=== PATIENT | female | born 1940 | race Caucasian/White ===

== ENCOUNTER → 2016-12-24 | Outpatient (CLI) | payer MEDICARE, BC ==
--- NOTE | 2016-12-25 16:06 | BD ---
EXAMINATION TYPE: MG DEXA axial skeleton. DATE OF EXAM: 12/24/2016 4:34 PM COMPARISON: NONE CLINICAL HISTORY: M81.0 OSTEOPOROSIS Height: 61 Weight: 120 FRAX RISK QUESTIONS: Alcohol (3 or more units per day): NO Family History (Parent hip fracture): UNSURE Glucocorticoids (More than 3mos): NO (Ex: prednisone, prednisolone, methylprednisolone, dexamethasone, and hydrocortisone). History of Fracture in Adulthood: NO Secondary Osteoporosis: NO 1. Type 1 Diabetes: NO 2. Hyperthyroidism: NO 3. Menopause before 45: NO 4. Malnutrition: NO 5. Chronic liver disease: NO Rheumatoid Arthritis: NO Current Tobacco Use: NO RISK FACTORS HISTORY OF: Spine Fracture: T-SPINE FX When: 50 YRS AGO Family History of Osteoporosis: UNKNOWN Smoke tobacco: NO Drink Alcohol: NO Active: SOMEWHAT Diet low in dairy products/other sources of calcium: NO Postmenopausal woman: 52 YRS Lost more than 2 inches in height since high school: UNSURE Adrenal Insufficiency: NO MEDICATIONS: Additional Medications: BP MEDS, STATINS FOR CHOLESTEROL, CALCIUM AND VIT D3 Additional History: HYPERTENSION, CHOLESTEROL EXAM MEASUREMENTS: Bone mineral densitometry was performed using the First Meta System. Bone mineral density as measured about the Lumbar spine is: ----- L1-L4(G/cm2): 1.025 T Score Values are as follows: ----- L1: -3.1 ----- L2: -2.7 ----- L3: -0.9 ----- L4: 0.9 ----- L1-L4: -1.3 Bone mineral density THIS IS HER FIRST BONE DENSITY AT [facility], [facility] AT [facility]...2006 Bone mineral density about the R hip (g/cm2): 0.849 Bone mineral density about the L hip (g/cm2): 0.786 T Score values are as follows: -----R Neck: -1.6 -----L Neck: -2.4 -----R Intertrochanter: -2.2 -----L Intertrochanter: -2.3 Bone mineral density FIRST BONE DENSITY FOR HER AT [facility], [facility] AT [facility]....2006 FRAX%'S: 17.0% FOR MAJOR OSTEOPOROTIC FX AND 5.8% FOR A HIP FX.....PROBABILITY OF FX IN 10 YRS JADA E IMPRESSION: Osteopenia (T Score between -2.5 and -1 as noted by T score values There is slightly increased risk of fracture and the patient may be considered for treatment. Re-Screen 1-2 years. NOTE: T-SCORE=SD OF THE YOUNG ADULT MEAN.
== END | disposition home or self-care (01) ==
LOC: RADBDWWP 16:09
PROVIDERS: ATTEND Family Medicine
DX: M85.80 Other specified disorders of bone density and structure, unspecified site (principal)
CPT/HCPCS: 77080

== ENCOUNTER 2024-10-11 00:14 | Inpatient (IN) | payer MEDICARE, BC ==
[2024-10-11 00:19] LABS: Glucose,Whole Blood 100 mg/dL (70-110)
--- NOTE | 2024-10-11 00:23 | ED ---
Fall HPI - General Chief Complaint: Fall Stated Complaint: Fall Time Seen by Provider: 10/11/24 00:16 Source: EMS, RN notes reviewed, old records reviewed Mode of arrival: EMS Limitations: no limitations - History of Present Illness Initial Comments: This is an 84-year-old female to the ER for evaluation today. Patient presents today for evaluation regards to altered mental status. This patient is unable to provide history. Patient was sent in for being found down and there was concern for fall MD Complaint: fall, other (Found down) -: unknown Fall From: standing When Fall Occurred: unsure Fall Witnessed: no Place Fall Occurred: home Loss of Consciousness: none Prolonged Down Time?: no Symptoms Prior to Fall: none Context: tripped/slipped Associated Symptoms: denies - Related Data Home Medications Medication Instructions Recorded Confirmed Brimonidine Tartrate/Timolol 1 drop BOTH EYES BID 10/11/24 10/11/24 [Brimonidine-Timolol 0.2%-0.5%] Latanoprost [Latanoprost 0.005%] 1 drop BOTH EYES HS 10/11/24 10/11/24 traMADol HCl [Ultram] 50 mg PO Q6H PRN 10/11/24 10/11/24 Previous Rx's Medication Instructions Recorded MORPHINE ORAL GABBI CONC 20mg/mL 10 mg PO Q4H PRN 3 Days #9 ml 10/14/24 [Roxanol Oral Soln Conc 20MG/ML] Allergies Allergy/AdvReac Type Severity Reaction Status Date / Time No Known Allergies Allergy Verified 10/11/24 07:41 Review of Systems ROS Statement: Those systems with pertinent positive or pertinent negative responses have been documented in the HPI. ROS Other: All systems not noted in ROS Statement are negative. Past Medical History Past Psychological History: Unable to Obtain Smoking Status: Unknown if ever smoked Past Alcohol Use History: None Reported Past Drug Use History: None Reported General Exam Limitations: no limitations General appearance: alert, in no apparent distress Head exam: Present: atraumatic, normocephalic, normal inspection Eye exam: Present: normal appearance, PERRL, EOMI. Absent: scleral icterus, conjunctival injection, periorbital swelling ENT exam: Present: normal exam, mucous membranes moist Neck exam: Present: normal inspection. Absent: tenderness, meningismus, lymphadenopathy Respiratory exam: Present: normal lung sounds bilaterally. Absent: respiratory distress, wheezes, rales, rhonchi, stridor Cardiovascular Exam: Present: regular rate, normal rhythm, normal heart sounds. Absent: systolic murmur, diastolic murmur, rubs, gallop, clicks GI/Abdominal exam: Present: soft, normal bowel sounds. Absent: distended, tenderness, guarding, rebound, rigid Extremities exam: Present: normal inspection, full ROM, normal capillary refill. Absent: tenderness, pedal edema, joint swelling, calf tenderness Back exam: Present: normal inspection Neurological exam: Present: alert, oriented X3, CN II-XII intact Psychiatric exam: Present: normal affect, normal mood Skin exam: Present: warm, dry, intact, normal color. Absent: rash Course Vital Signs 10/11/24 10/11/24 10/11/24 00:15 04:01 05:09 Temperature 97.7 F Pulse Rate 86 86 88 Respiratory 18 18 20 Rate Blood Pressure 106/86 92/60 111/79 O2 Sat by Pulse 95 96 96 Oximetry - Reevaluation(s) Reevaluation #1: 10/11/24 03:42 Medical records reviewed Reevaluation #2: 10/11/24 03:42 No change in symptoms here in the ER Reevaluation #3: 10/11/24 03:42 Patient informed of results questions answered Reevaluation #4: Was pt. sent in by a medical professional or institution ([facility], [facility], urgent care, hospital, or fci...) When possible be specific @ -no Did you speak to anyone other than the patient for history (EMS, parent, family, police, friend...)? What history was obtained from this source @ -no Did you review nursing and triage notes (agree or disagree)? Why? @ -agree Are old charts reviewed (outside hosp., previous admission, EMS record, old EKG, old radiological studies, urgent care reports/EKG's, fci records)? Report findings @ -yes Differential Diagnosis (chest pain, altered mental status, abdominal pain women, abdominal pain men, vaginal bleeding, weakness, fever, dyspnea, syncope, headache, dizziness, GI bleed, back pain, seizure, CVA, palpatations, mental health, musculoskeletal)? @ -prior EKG interpreted by me (3pts min.). @ -yes X-rays interpreted by me (1pt min.). @ -yes negative for acute disease CT interpreted by me (1pt min.). @ -Yes negative for acute disease U/S interpreted by me (1pt. min.). @ -no What testing was considered but not performed or refused? (CT, X-rays, U/S, labs)? Why? @ -none What meds were considered but not given or refused? Why? @ -none Did you discuss the management of the patient with other professionals (professionals i.e. , PA, UNDERWATER TR[employer], lab, RT, psych nurse, group social worker, hospital medicine director, teacher, radio division officer, case finishing machine adjuster)? Give summary @ -no Was smoking cessation discussed for >3mins.? @ -no Was critical care preformed (if so, how long)? @ -no Were there social determinants of health that impacted care today? How? (Homelessness, low income, unemployed, alcoholism, drug addiction, tr ansportation, low edu. Level, literacy, decrease access to med. care, assisted, rehab)? @ -none Was there de-escalation of care discussed even if they declined (Discuss DNR or withdrawal of care, Hospice)? DNR status @ -no What co-morbidities impacted this encounter? (DM, HTN, Smoking, COPD, CAD, Canc er, CVA, ARF, Chemo, Hep., AIDS, mental health diagnosis, sleep apnea, morbid obesity)? @ -none Was patient admitted / discharged? Hospital course, mention meds given and route, prescriptions, significant lab abnormalities, going to OR and other pertinent info. @ - 84 female will be admitted for low potassium levels, suspect UTI, patient with persistent weakness and falls, debility, will admit for likely placement malnutrition low potassium Admitted Undiagnosed new problem with uncertain prognosis? @ -no Drug Therapy requiring intensive monitoring for toxicity (Heparin, Nitro, Insulin, Cardizem)? @ -no Were any procedures done? @ -no Diagnosis/symptom? @ -Low potassium and falls Acute, or Chronic, or Acute on Chronic? @ -Acute Uncomplicated (without systemic symptoms) or Complicated (systemic symptoms)? @ -Complicated Side effects of treatment? @ -no Exacerbation, Progression, or Severe Exacerbation? @ -exacerbation Poses a threat to life or bodily function? How? (Chest pain, USA, ME, pneumonia, PE, COPD, DKA, ARF, appy, cholecystitis, CVA, Diverticulitis, Homicidal, Suicid al, threat to staff... and all critical care pts) @ -yes severely low potassium Reevaluation #5: Differential Altered Mental Status: Hypoglycemia, DKA, hypercapnia, ETOH, overdose, CO poisoning, trauma, myxedema coma, HTN encephalopathy, infection, encephalitis, psychosis, intercranial hemorrhage, hepatic encephalopathy, meningitis, CVA, this is not meant to be an all-inclusive list - Consultations Consultation #1: With [facility] who agrees to admit this patient Medical Decision Making - Medical Decision Making 84 female will be admitted for low potassium levels, suspect UTI, patient with persistent weakness and falls, debility, will admit for likely placement malnutrition low potassium - Lab Data Result diagrams: 10/12/24 05:54 10/12/24 05:54 Lab Results 10/11/24 10/11/24 10/11/24 Range/Units 00:17 00:22 00:22 WBC 11.7 H (3.8-10.6) k/uL RBC 4.48 (3.80-5.40) m/uL Hgb 13.7 (11.4-16.0) gm/dL Hct 42.5 (34.0-46.0) % MCV 94.9 (80.0-100.0) fL MCH 30.5 (25.0-35.0) pg MCHC 32.1 (31.0-37.0) g/dL RDW 13.6 (11.5-15.5) % Plt Count 268 (150-450) k/uL MPV 8.4 Neutrophils % 85 % Lymphocytes % 6 % Monocytes % 5 % Eosinophils % 1 % Basophils % 0 % Neutrophils # 10.0 H (1.3-7.7) k/uL Lymphocytes # 0.7 L (1.0-4.8) k/uL Monocytes # 0.6 (0-1.0) k/uL Eosinophils # 0.1 (0-0.7) k/uL Basophils # 0.0 (0-0.2) k/uL PT 11.1 (10.0-12.5) sec INR 1.0 (<1.2) APTT 22.8 (22.0-30.0) sec Sodium (137-145) mmol/L Potassium (3.5-5.1) mmol/L Chloride (98-107) mmol/L Carbon Dioxide (22-30) mmol/L Anion Gap mmol/L BUN (7-17) mg/dL Creatinine (0.52-1.04) mg/dL Est GFR (CKD-EPI)AfAm (>60 ml/min/1.73 sqM) Est GFR (CKD-EPI)NonAf (>60 ml/min/1.73 sqM) Glucose (74-99) mg/dL POC Glucose (mg/dL) 100 (70-110) mg/dL POC Glu Cigarette Machines Mechanic ID Karlo Rajputsten Calcium (8.4-10.2) mg/dL Phosphorus (2.5-4.5) mg/dL Magnesium (1.6-2.3) mg/dL Total Bilirubin (0.2-1.3) mg/dL AST (14-36) U/L ALT (4-34) U/L Alkaline Phosphatase (38-126) U/L Creatine Kinase (30-135) U/L Troponin I (0.000-0.034) ng/mL NT-Pro-B Natriuret Pep pg/mL Total Protein (6.3-8.2) g/dL Albumin (3.5-5.0) g/dL 10/11/24 10/11/24 Range/Units 00:22 00:22 WBC (3.8-10.6) k/uL RBC (3.80-5.40) m/uL Hgb (11.4-16.0) gm/dL Hct (34.0-46.0) % MCV (80.0-100.0) fL MCH (25.0-35.0) pg MCHC (31.0-37.0) g/dL RDW (11.5-15.5) % Plt Count (150-450) k/uL MPV Neutrophils % % Lymphocytes % % Monocytes % % Eosinophils % % Basophils % % Neutrophils # (1.3-7.7) k/uL Lymphocytes # (1.0-4.8) k/uL Monocytes # (0-1.0) k/uL Eosinophils # (0-0.7) k/uL Basophils # (0-0.2) k/uL PT (10.0-12.5) sec INR (<1.2) APTT (22.0-30.0) sec Sodium 134 L (137-145) mmol/L Potassium 2.6 L* (3.5-5.1) mmol/L Chloride 105 (98-107) mmol/L Carbon Dioxide 26 (22-30) mmol/L Anion Gap 3 mmol/L BUN 17 (7-17) mg/dL Creatinine 0.81 (0.52-1.04) mg/dL Est GFR (CKD-EPI)AfAm 77 (>60 ml/min/1.73 sqM) Est GFR (CKD-EPI)NonAf 67 (>60 ml/min/1.73 sqM) Glucose 97 (74-99) mg/dL POC Glucose (mg/dL) (70-110) mg/dL POC Glu Cigarette Machines Mechanic ID Calcium 8.8 (8.4-10.2) mg/dL Phosphorus 4.1 (2.5-4.5) mg/dL Magnesium 2.1 (1.6-2.3) mg/dL Total Bilirubin 0.5 (0.2-1.3) mg/dL AST 29 (14-36) U/L ALT 21 (4-34) U/L Alkaline Phosphatase 97 (38-126) U/L Creatine Kinase 69 (30-135) U/L Troponin I 0.060 H* (0.000-0.034) ng/mL NT-Pro-B Natriuret Pep 1020 pg/mL Total Protein 5.3 L (6.3-8.2) g/dL Albumin 2.8 L (3.5-5.0) g/dL - EKG Data -: EKG Interpreted by Me (EKG is sinus 87 AL 152 QRS 130 QTc 432) - Radiology Data Radiology results: report reviewed (CT brain C-spine chest and pelvis x-ray negative for acute disease), image reviewed Disposition Clinical Impression: Hypokalemia, Fall, Weakness Disposition: ADMITTED IP TO THIS HOSP Condition: Poor Is patient prescribed a controlled substance at d/c from ED?: No Time of Disposition: 02:00
[2024-10-11 00:54] LABS: Basophils % (A) 0 %; Eosinophils # (A) 0.1 k/uL (0-0.7); Eosinophils % (A) 1 %; HCT 42.5 % (34.0-46.0); HGB 13.7 gm/dL (11.4-16.0); Lymphocytes # (A) 0.7 k/uL (1.0-4.8); Lymphocytes % (A) 6 %; MCH 30.5 pg (25.0-35.0); MCHC 32.1 g/dL (31.0-37.0); MCV 94.9 fL (80.0-100.0); Mean Platelet Volume 8.4; Monocytes # (A) 0.6 k/uL (0-1.0); Monocytes % (A) 5 %; Neutrophils % (A) 85 %; Platelet Count 268 k/uL (150-450); RBC 4.48 m/uL (3.80-5.40); RDW 13.6 % (11.5-15.5); WBC 11.7 k/uL (3.8-10.6)
[2024-10-11 01:02] LABS: Partial Thromboplastin Time 22.8 sec (22.0-30.0); Prothrombin Time 11.1 sec (10.0-12.5)
[2024-10-11 01:03] LABS: ALT 21 U/L (4-34); AST 29 U/L (14-36); African American GFR (CKD) 77 (>60 ml/min/1.73 sqM); Albumin 2.8 g/dL (3.5-5.0); Alkaline Phosphatase 97 U/L (38-126); Anion Gap 3 mmol/L; Blood Urea Nitrogen 17 mg/dL (7-17); Calcium 8.8 mg/dL (8.4-10.2); Carbon Dioxide 26 mmol/L (22-30); Chloride 105 mmol/L (98-107); Creatine Kinase 69 U/L (30-135); Glucose 97 mg/dL (74-99); Magnesium 2.1 mg/dL (1.6-2.3); Non-African American GFR(CKD) 67 (>60 ml/min/1.73 sqM); Phosphorus 4.1 mg/dL (2.5-4.5); Sodium 134 mmol/L (137-145); Total Bilirubin 0.5 mg/dL (0.2-1.3); Total Protein 5.3 g/dL (6.3-8.2)
[2024-10-11 01:11] LABS: NT-Pro-B-Type Natriuretic Pept 1020 pg/mL
[2024-10-11 01:18] LABS: Potassium 2.6 mmol/L (3.5-5.1)
[2024-10-11] MEDS: SODIUM CHLORIDE 0.9% 1,000 ML IV STA ×2 (01:20→08:19)
--- NOTE | 2024-10-11 01:34 | CT ---
EXAM: CT Head Without Intravenous Contrast CLINICAL HISTORY: ITS.REASON CT Reason: fall TECHNIQUE: Axial computed tomography images of the head/brain without intravenous contrast. CTDI is 90.5 mGy and DLP is 2956 mGy-cm. This CT exam was performed using one or more of the following dose reduction techniques: automated exposure control, adjustment of the mA and/or kV according to patient size, and/or use of iterative reconstruction technique. COMPARISON: No relevant prior studies available. FINDINGS: Brain: No hemorrhage or mass effect. Senescent changes. Ventricles: No hydrocephalus. Bones/joints: Unremarkable. Soft tissues: Unremarkable. Sinuses: No air fluid level. Mastoid air cells: Clear. IMPRESSION: No acute hemorrhage, hydrocephalus, or mass effect. EXAM: CT Cervical Spine Without Intravenous Contrast CLINICAL HISTORY: ITS.REASON CT Reason: fall TECHNIQUE: Axial computed tomography images of the cervical spine without intravenous contrast. CTDI is 10.3 mGy and DLP is 285.6 mGy-cm. This CT exam was performed using one or more of the following dose reduction techniques: automated exposure control, adjustment of the mA and/or kV according to patient size, and/or use of iterative reconstruction technique. COMPARISON: No relevant prior studies available. FINDINGS: Vertebrae: No acute fracture. Discs/spinal canal/neural foramina: degenerative changes. Soft tissues: No prevertebral swelling. Mild left pleural effusion. IMPRESSION: No acute fracture or subluxation. Mild left pleural effusion.
[2024-10-11] MEDS: POTASSIUM CHLORIDE 20 MEQ in WATER FOR INJECTION 1 100ML.BAG IVPB STA (02:36)
[2024-10-11] MEDS: POTASSIUM BICARBONATE/CIT AC 20 MEQ TABLET.EFF PO ONE ×2 (02:36→02:38)
--- NOTE | 2024-10-11 02:51 | XR ---
EXAM: XR Chest, 1 View CLINICAL HISTORY: ITS.REASON XR Reason: fall TECHNIQUE: Frontal view of the chest. COMPARISON: No relevant prior studies available. FINDINGS: Lungs: No consolidation or mass. Pleural space: No acute findings. Heart: Mild cardiomegaly. Bones/joints: No acute findings. IMPRESSION: No acute cardiopulmonary process.
--- NOTE | 2024-10-11 02:53 | XR ---
EXAM: XR Pelvis, 1 or 2 Views CLINICAL HISTORY: ITS.REASON XR Reason: fall TECHNIQUE: Frontal view of the pelvis. COMPARISON: No relevant prior studies available. FINDINGS: Bones/joints: No acute fracture. No dislocation. Soft tissues: Unremarkable. IMPRESSION: No acute findings.
[2024-10-11] MEDS ORDERED: Potassium Replacement Protocol 1 EACH MISC MISCELLANE PRN (03:03)
[2024-10-11] MEDS ORDERED: LORazepam 2 MG/ML INJ IV PRN (03:03)
[2024-10-11] MEDS: SODIUM CHLORIDE 0.9% 500 ML 500 ML IV STA (03:21)
[2024-10-11] MEDS: LORazepam 2 MG/ML INJ IV STA (03:32)
[2024-10-11] MEDS ORDERED: ONDANSETRON 4 MG/2 ML VIAL IVP PRN (04:24)
[2024-10-11] MEDS ORDERED: NALOXONE 0.4 MG/ML 1 ML VIAL IV PRN (04:24)
[2024-10-11] MEDS: POTASSIUM CHLORIDE 20 MEQ in WATER FOR INJECTION 1 100ML.BAG IVPB SCH (04:53)
[2024-10-11] MEDS: SODIUM CHLORIDE 0.9% 1,000 ML IV SCH (07:30)
[2024-10-11] MEDS: SENNOSIDES 8.6 MG TAB PO SCH (10:17)
[2024-10-11] MEDS: THIAMINE 100 MG TAB PO SCH (10:17)
[2024-10-11] MEDS: ASPIRIN 81 MG PO SCH (10:17)
[2024-10-11 11:22] LABS: Appearance,Urine Clear (Clear); Bilirubin,Urine Negative (Negative); Blood,Urine Negative (Negative); Color,Urine Light Yellow; Glucose,Urine (UA) Negative (Negative); Ketones,Urine 1+ (Negative); Leukocyte Esterase,Urine Negative (Negative); Nitrite,Urine Negative (Negative); Protein,Urine Negative (Negative); Specific Gravity,Urine 1.012 (1.001-1.035); Urobilinogen,Urine <2.0 mg/dL (<2.0)
[2024-10-11] MEDS ORDERED: OLANZapine 10 MG VIAL IM PRN (16:58)
--- NOTE | 2024-10-11 17:22 | P.HPIM ---
History of Present Illness H&P Date: 10/11/24 History of present illness; Patient is an 84-year-old female with dementia, hypertension who presents after fall. Patient is somnolent and not able to provide history. It is reported that she had unseen fall unknown LOC and unknown downtime. She is coming from [facility]. She was noted to have laceration on back right side head. In ER she received single dose of Ativan. Labs done in the ER significant for WBC 11.7, sodium 134, potassium 2.6, glucose 97, troponin 0.060, proBNP 1020, UA positive for ketones otherwise negative EKG done in the ER independently interpreted showed heart rate of 87, no ST segment elevation or depression seen, no T-wave inversions seen. Chest x-ray done independently interpreted in the ER showed no acute process CT head/neck done independently interpreted showed no acute intracranial process. Pelvic x-ray done independently interpreted showed no fracture or dislocation Spoke with the ER physician, patient admission was accepted by internal medicine service for treatment. REVIEW OF SYSTEMS: Unable to review due to lethargy PHYSICAL EXAMINATION: Vitals reviewed GENERAL: Somnolent, thin appearing HEENT: Cannot fully assess. ~2 cm laceration on back right head, closed. CARDIOVASCULAR: S1 and S2 present. No murmurs, rubs, or gallops. PULMONARY: Chest is clear to auscultation, no wheezing, rhonchi, or crackles. ABDOMEN: Generalized tenderness and guarding MUSCULOSKELETAL: Osteoarthritic joints. EXTREMITIES: No apparent cyanosis, clubbing, or pedal edema. NEUROLOGICAL: Seems to move upper and lower extremities. SKIN: No apparent rashes. Assessment and plan Patient is an 84-year-old female with dementia, hypertension who presents after fall. #Mildly elevated troponin #Elevated D-dimer, rule out PE #Fall No ST depression or elevation noted Continuous cardiac monitoring CT angiogram pending Echocardiogram pending Will begin heparin drip if CT angiogram confirms PE Cardiology consulted # Hypokalemia Initially given 120 mEq potassium chloride Potassium replacement protocol Will monitor CMP #Leukocytosis #Generalized abdominal pain #Urinary retention UA positive for ketones Given ceftriaxone 2 g Merlos catheter inserted #Failure to thrive, BMI 14.3 #Starvation ketosis UA positive for ketones Resume home medications F: IV Normal saline 75 mL/h E: Replete potassium N: Soft diet DVT ppx: Subq Lovenox 40 meq daily Code status: Full code [facility]ticipated discharge time: Pending clinical course Dictation was produced using [employer] dictation software. Please excuse any grammatical, word or spelling errors. Attestation I have seen and examined this patient with my resident , discussed the same with the resident/ELIZABETH, and agree with the dictator's assessment and plan as written Dr. Mulugeta bernal Past Medical History Past Medical History: Dementia, Hyperlipidemia, Hypertension History of Any Multi-Drug Resistant Organisms: None Reported Past Surgical History: Appendectomy, Cholecystectomy Additional Past Surgical History / Comment(s): Fractured pelvis from prior fall years ago Past Anesthesia/Blood Transfusion Reactions: No Reported Reaction Past Psychological History: Unable to Obtain Smoking Status: Never smoker Past Alcohol Use History: None Reported Past Drug Use History: None Reported Medications and Allergies Home Medications Medication Instructions Recorded Confirmed Type Acetaminophen Tab [Tylenol] 650 mg PO Q4H PRN 10/11/24 10/11/24 History Aspirin 81 mg PO DAILY 10/11/24 10/11/24 History Brimonidine Tartrate/Timolol 1 drop BOTH EYES BID 10/11/24 10/11/24 History [Brimonidine-Timolol 0.2%-0.5%] Eye-Vites 1 tab PO DAILY 10/11/24 10/11/24 History Folic Acid 0.8 mg PO DAILY 10/11/24 10/11/24 History Healthshake 1 can PO TID-W/MEALS 10/11/24 10/11/24 History Lactulose Encephalopathy Soln 20 gm PO Q12H PRN 10/11/24 10/11/24 History Latanoprost [Latanoprost 0.005%] 1 drop BOTH EYES HS 10/11/24 10/11/24 History Naloxone HCl [Narcan] 4 mg NASAL DIRECTED PRN 10/11/24 10/11/24 History Narcan 0.4mg/Ml 0.4 mg IM DIRECTED PRN 10/11/24 10/11/24 History Poviidone-Iodine Ophth 1 drop BOTH EYES Q8H PRN 10/11/24 10/11/24 History Psyllium Husk (with Sugar) 1 tbsp PO TID-W/MEALS 10/11/24 10/11/24 History [Metamucil Powder] Sennosides [Senokot] 8.6 mg PO BID 10/11/24 10/11/24 History Simvastatin [Zocor] 20 mg PO HS 10/11/24 10/11/24 History Thiamine [Vitamin B-1] 100 mg PO DAILY 10/11/24 10/11/24 History acetaZOLAMIDE [Diamox Sequels] 500 mg PO BID@0700,1900 10/11/24 10/11/24 History amLODIPine [Norvasc] 2.5 mg PO DAILY 10/11/24 10/11/24 History bisacodyL 10 mg RECTAL DAILY PRN 10/11/24 10/11/24 History traMADol HCl [Ultram] 50 mg PO Q6H PRN 10/11/24 10/11/24 History Allergies Allergy/AdvReac Type Severity Reaction Status Date / Time No Known Allergies Allergy Verified 10/11/24 07:41 Physical Exam Vitals: Vital Signs Temp Pulse Pulse Resp BP BP Pulse Ox 10/11/24 07:02 97.3 F L 94 18 101/49 98 10/11/24 06:24 97.3 F L 94 18 101/49 98 10/11/24 05:09 88 20 111/79 96 10/11/24 04:01 86 18 92/60 96 10/11/24 00:15 97.7 F 86 18 106/86 95 Intake and Output 10/10/24 10/11/24 10/11/24 22:59 06:59 14:59 Intake Total 100 Balance 100 Intake: Intake, IV Titration 100 Amount Potassium Chloride 20 meq 100 In Water For Injection 1 100ml.bag @ 50 mls/hr IVPB Q2H [facility] Rx#: [id number] Other: # Bowel Movements 1 Weight 41.5 kg 41.5 kg Results CBC & Chem 7: 10/12/24 05:54 10/12/24 05:54 Labs: Abnormal Lab Results - Last 24 Hours (Table) 10/11/24 10/11/24 10/11/24 Range/Units 00:22 00:22 00:22 WBC 11.7 H (3.8-10.6) k/uL Neutrophils # 10.0 H (1.3-7.7) k/uL Lymphocytes # 0.7 L (1.0-4.8) k/uL Sodium 134 L (137-145) mmol/L Potassium 2.6 L* (3.5-5.1) mmol/L Troponin I 0.060 H* (0.000-0.034) ng/mL Total Protein 5.3 L (6.3-8.2) g/dL Albumin 2.8 L (3.5-5.0) g/dL Thrombosis Risk Factor Assmnt - Choose All That Apply Any of the Below Risk Factors Present?: Yes Each Factor Represents 1 point: Swollen legs (current) Other Risk Factors: Yes Each Risk Factor Represents 3 Points: Age 75 years or older Other congenital or acquired thrombophilia - If yes, enter type in comment: No Thrombosis Risk Factor Assessment Total Risk Factor Score: 4 Thrombosis Risk Factor Assessment Level: Moderate Risk
--- NOTE | 2024-10-11 18:28 | CT ---
EXAMINATION TYPE: CT chest angio for PE CT DLP: 222.1 mGycm, Automated exposure control for dose reduction was used. DATE OF EXAM: 10/11/2024 6:07 PM COMPARISON: Chest radiograph from same day. CT C-spine from the same day.. CLINICAL INDICATION:Female, 84 years old with history of Dyspnea; Dyspnea. TECHNIQUE/CONTRAST: CTA scan of the thorax is performed with IV Contrast, patient injected with 100 ml mL of Isovue 370, MIP images are created and reviewed these are created on a separate workstation.. FINDINGS: Motion artifact degrades images limiting evaluation. Exam is also limited by patient upper extremitie s overlying the lower thorax and upper abdomen resulting in beam artifact degrading quality of images . Pulmonary Artery: There is no evidence for a filling defect within the pulmonary vasculature to sugge st acute pulmonary embolism. The pulmonary artery is of normal size. Lungs/Pleura: Bibasilar atelectasis/scarring. There is a small left pleural effusion Airway: Large airways are patent. Bilateral bronchiectasis most pronounced in the lower lobes. Heart/pericardium: Heart is within normal limits for size. Left ventricular hypertrophy is present. T race pericardial fluid is present. Vasculature: There is hazy curvilinear hypoattenuation noted within the distal descending thoracic ao rta and for a short segment of the proximal abdominal aorta. There are no aneurysmal changes. Mediastinum: No gross evidence of adenopathy. Musculoskeletal: Partially visualized superior endplate compression deformity of L4 vertebral body al so may represent a small node. Degenerative changes visualized spine. Motion artifacts limit the eval uation of rib fractures. Diffuse osteopenia. Soft Tissues/lymph nodes: Unremarkable. Lower neck: No significant findings. Upper Abdomen: Cystic changes of the right kidney suggested. Moderate-sized hiatal hernia with partia l intrathoracic stomach present. IMPRESSION: 1. No evidence of pulmonary embolism. 2. Hazy curvilinear hypoattenuation within the descending thoracic distal aorta and proximal abdomina l aorta which may represent a dissection flap however exam is significantly limited secondary to noman on artifact. Findings might be artifactual. Correlate with any known history and clinical evaluation. If clinical concern for dissection is present repeat short-term follow-up as needed. 3. Small left pleural effusion. 4. Left ventricular hypertrophy is suggested. Correlate with echocardiography. 5. Partially visualized endplate compression deformity of L4 vertebral body. This may represent a Eileen morl node formation versus a compression fracture. Correlate with any point tenderness and history of trauma. [facility], , 10/11/2024 6:26 PM
[2024-10-11] MEDS: LATANOPROST 0.005% OPHTH DROPS 2.5 ML BTL BOTH EYES SCH (20:16)
[2024-10-12 06:52] LABS: Basophils # (A) 0.1 k/uL (0-0.2); Basophils % (A) 1 %; Eosinophils # (A) 0.1 k/uL (0-0.7); Eosinophils % (A) 1 %; HCT 40.2 % (34.0-46.0); HGB 12.6 gm/dL (11.4-16.0); Hypochromasia Moderate; Lymphocytes # (A) 0.9 k/uL (1.0-4.8); Lymphocytes % (A) 8 %; MCH 31.1 pg (25.0-35.0); MCHC 31.3 g/dL (31.0-37.0); MCV 99.5 fL (80.0-100.0); Mean Platelet Volume 8.6; Monocytes # (A) 0.6 k/uL (0-1.0); Monocytes % (A) 6 %; Neutrophils % (A) 83 %; Platelet Count 259 k/uL (150-450); RBC 4.04 m/uL (3.80-5.40); RDW 13.7 % (11.5-15.5); WBC 10.9 k/uL (3.8-10.6)
[2024-10-12 07:12] LABS: ALT 16 U/L (4-34); AST 26 U/L (14-36); African American GFR (CKD) >90 (>60 ml/min/1.73 sqM); Albumin 2.3 g/dL (3.5-5.0); Alkaline Phosphatase 76 U/L (38-126); Anion Gap 9 mmol/L; Blood Urea Nitrogen 15 mg/dL (7-17); Calcium 8.3 mg/dL (8.4-10.2); Carbon Dioxide 14 mmol/L (22-30); Chloride 117 mmol/L (98-107); Glucose 55 mg/dL (74-99); Magnesium 2.2 mg/dL (1.6-2.3); Non-African American GFR(CKD) 79 (>60 ml/min/1.73 sqM); Phosphorus 3.7 mg/dL (2.5-4.5); Potassium 3.9 mmol/L (3.5-5.1); Sodium 140 mmol/L (137-145); Total Bilirubin 0.1 mg/dL (0.2-1.3); Total Protein 4.5 g/dL (6.3-8.2)
[2024-10-12] MEDS ORDERED: DEXTROSE 50% SYRINGE 50 ML IVP PRN (08:50)
[2024-10-12] MEDS: ENOXAPARIN 40 MG/0.4 ML SYRINGE SQ SCH (09:22)
[2024-10-12 09:25] LABS: Glucose,Whole Blood 74 mg/dL (70-110)
[2024-10-12 11:19] LABS: Glucose,Whole Blood 51 mg/dL (70-110)
[2024-10-12] MEDS: DEXTROSE 50% SYRINGE 50 ML IVP PRN (11:19)
[2024-10-12] MEDS: DEXTROSE 5% IN WATER 1,000 ML IV SCH (11:34)
--- NOTE | 2024-10-12 11:42 | P.PN ---
Subjective Progress Note Date: 10/12/24 History of present illness; Patient is an 84-year-old female with dementia, hypertension who presents after fall. Patient is somnolent and not able to provide history. It is reported that she had unseen fall unknown LOC and unknown downtime. She is coming from [facility]. She was noted to have laceration on back right side head. In ER she received single dose of Ativan. Labs done in the ER significant for WBC 11.7, sodium 134, potassium 2.6, glucose 97, troponin 0.060, proBNP 1020, UA positive for ketones otherwise negative EKG done in the ER independently interpreted showed heart rate of 87, no ST segment elevation or depression seen, no T-wave inversions seen. Chest x-ray done independently interpreted in the ER showed no acute process CT head/neck done independently interpreted showed no acute intracranial process. Pelvic x-ray done independently interpreted showed no fracture or dislocation 10/12/2024 Patient seen and examined at bedside. Spoke to at bedside and goals of care discussion. After discussion decision was made by to patient" and consult hospice. He stated she has had multiple incidences of fall, when she was able to ambulate with wheelchair. Since then he was moved to nursing facility several weeks ago, where she uses wheelchair. She remains lethargic, unable to respond appropriately to questions thus far. Begin D5W at 74. Significant labs WBC 10.9, sodium 140, potassium 3.9, bicarb 14, glucose 55. CTA of chest interpreted as no pulmonary embolism, significant artifact due to motion. REVIEW OF SYSTEMS: Unable to review due to lethargy PHYSICAL EXAMINATION: Vitals reviewed GENERAL: Somnolent, thin appearing HEENT: Cannot fully assess. ~2 cm laceration on back right head, closed. CARDIOVASCULAR: S1 and S2 present. No murmurs, rubs, or gallops. PULMONARY: Chest is clear to auscultation, no wheezing, rhonchi, or crackles. ABDOMEN: Soft, no noted tenderness or distension MUSCULOSKELETAL: Osteoarthritic joints. EXTREMITIES: No apparent cyanosis, clubbing, or pedal edema. NEUROLOGICAL: Seems to move upper and lower extremities. SKIN: No apparent rashes. Assessment and plan Patient is an 84-year-old female with dementia, hypertension who presents after fall. #Mildly elevated troponin #Elevated D-dimer, rule out PE #Fall No ST depression or elevation noted Continuous cardiac monitoring CT angiogram no pulmonary embolism Echocardiogram pending - PT/OT Cardiology consulted #Leukocytosis #Generalized abdominal pain #Urinary retention UA positive for ketones Given ceftriaxone 2 g Merlos catheter inserted #Failure to thrive, BMI 14.3 #Starvation ketosis UA positive for ketones # Hypokalemia, resolved Initially given 120 mEq potassium chloride Potassium replacement protocol Will monitor CMP Resume home medications F: IV Normal saline 75 mL/h E: Replete potassium N: Soft diet DVT ppx: Subq Lovenox 40 meq daily Code status: Full code Anticipated discharge place: [facility] Anticipated discharge time: Pending clinical course Dictation was produced using [employer] dictation software. Please excuse any grammatical, word or spelling errors. Attestation I have seen and examined this patient with my resident , discussed the same with the resident/ELIZABETH, and agree with the dictator's assessment and plan as written Dr. Mulugeta bernal Objective - Vital Signs Vital signs: Vital Signs Temp 99.6 F 10/12/24 04:00 Pulse 98 10/12/24 04:00 Resp 20 10/12/24 04:00 BP 107/55 10/12/24 04:00 Pulse Ox 92 L 10/12/24 04:00 FiO2 Intake & Output 10/11/24 10/12/24 10/12/24 18:59 06:59 18:59 Output Total 950 650 Balance -950 -650 Weight 41.5 kg Output: Urine 950 650 Other: Voiding Method Indwelling Catheter Indwelling Catheter # Bowel Movements 2 1 - Labs CBC & Chem 7: 10/12/24 05:54 10/12/24 05:54 Labs: Abnormal Lab Results - Last 24 Hours (Table) 10/11/24 10/11/24 10/11/24 Range/Units 08:21 08:21 11:01 WBC (3.8-10.6) k/uL Neutrophils # (1.3-7.7) k/uL Lymphocytes # (1.0-4.8) k/uL D-Dimer 4.26 H (<0.60) mg/L FEU Chloride (98-107) mmol/L Carbon Dioxide (22-30) mmol/L Glucose (74-99) mg/dL Calcium (8.4-10.2) mg/dL Total Bilirubin (0.2-1.3) mg/dL Troponin I 0.053 H* (0.000-0.034) ng/mL Total Protein (6.3-8.2) g/dL Albumin (3.5-5.0) g/dL Urine Ketones 1+ H (Negative) 10/11/24 10/12/24 10/12/24 Range/Units 12:36 05:54 05:54 WBC 10.9 H (3.8-10.6) k/uL Neutrophils # 9.0 H (1.3-7.7) k/uL Lymphocytes # 0.9 L (1.0-4.8) k/uL D-Dimer (<0.60) mg/L FEU Chloride 117 H (98-107) mmol/L Carbon Dioxide 14 L (22-30) mmol/L Glucose 55 L (74-99) mg/dL Calcium 8.3 L (8.4-10.2) mg/dL Total Bilirubin 0.1 L (0.2-1.3) mg/dL Troponin I 0.039 H* (0.000-0.034) ng/mL Total Protein 4.5 L (6.3-8.2) g/dL Albumin 2.3 L (3.5-5.0) g/dL Urine Ketones (Negative)
[2024-10-12 11:45] LABS: Glucose,Whole Blood 162 mg/dL (70-110)
[2024-10-12 16:30] LABS: Glucose,Whole Blood 130 mg/dL (70-110)
[2024-10-12 22:42] LABS: Glucose,Whole Blood 89 mg/dL (70-110)
[2024-10-13 06:28] LABS: Glucose,Whole Blood 124 mg/dL (70-110)
[2024-10-13] MEDS: MORPHINE SULFATE 4 MG/ML SYRINGE IV PRN (11:54)
--- NOTE | 2024-10-13 15:21 | P.PN ---
Subjective Progress Note Date: 10/13/24 Patient is an 84-year-old female with dementia, hypertension who presents after fall. Patient is somnolent and not able to provide history. It is reported that she had unseen fall unknown LOC and unknown downtime. She is coming from [facility]. She was noted to have laceration on back right side head. In ER she received single dose of Ativan. Labs done in the ER significant for WBC 11.7, sodium 134, potassium 2.6, glucose 97, troponin 0.060, proBNP 1020, UA positive for ketones otherwise negative EKG done in the ER independently interpreted showed heart rate of 87, no ST segment elevation or depression seen, no T-wave inversions seen. Chest x-ray done independently interpreted in the ER showed no acute process CT head/neck done independently interpreted showed no acute intracranial process. Pelvic x-ray done independently interpreted showed no fracture or dislocation 10/12/2024 Patient seen and examined at bedside. Spoke to at bedside and goals of care discussion. After discussion decision was made by to patient" and consult hospice. He stated she has had multiple incidences of fall, when she was able to ambulate with wheelchair. Since then he was moved to nursing facility several weeks ago, where she uses wheelchair. She remains lethargic, unable to respond appropriately to questions thus far. Begin D5W at 74. Significant labs WBC 10.9, sodium 140, potassium 3.9, bicarb 14, glucose 55. CTA of chest interpreted as no pulmonary embolism, significant artifact due to motion. 10/13. Patient seen and examined. Continues to be lethargic. REVIEW OF SYSTEMS: Review of system cannot be obtained as patient is lethargic PHYSICAL EXAMINATION: GENERAL: The patient is lethargic, chronically ill looking, frail looking HEENT: Pupils are round and equally reacting to light. EOMI. No scleral icterus. No conjunctival pallor. Normocephalic, atraumatic. No pharyngeal erythema. No thyromegaly. CARDIOVASCULAR: S1 and S2 present. No murmurs, rubs, or gallops. PULMONARY: Chest is clear to auscultation, no wheezing or crackles. ABDOMEN: Soft, nontender, nondistended, normoactive bowel sounds. No palpable organomegaly. MUSCULOSKELETAL: No joint swelling or deformity. EXTREMITIES: No cyanosis, clubbing, or pedal edema. NEUROLOGICAL: Lethargic, moving all extremities SKIN: No rashes. Assessment and plan Mildly elevated troponin #Elevated D-dimer, rule out PE #Fall No ST depression or elevation noted Continuous cardiac monitoring CT angiogram no pulmonary embolism Hospice consulted #Leukocytosis #Generalized abdominal pain #Urinary retention Improved #Failure to thrive, BMI 14.3 #Starvation ketosis Discussed with , patient does not want any aggressive measures, hospice consulted # Hypokalemia, resolved Monitor BMP Labs and medication were reviewed.. Continue same treatment. Continue with symptomatic treatment. Resume home medication. Monitor labs and vitals. DVT and GI prophylaxis. Further recommendations as per clinical course of the patient Dictation was produced using [employer] dictation software. please excuse any grammatical, word or spelling errors. Objective - Vital Signs Vital signs: Vital Signs Temp 98.3 F 10/13/24 08:00 Pulse 86 10/13/24 14:20 Resp 18 10/13/24 08:00 BP 123/78 10/13/24 14:20 Pulse Ox 95 10/13/24 08:00 FiO2 Intake & Output 10/12/24 10/13/24 10/13/24 18:59 06:59 18:59 Output Total 200 600 Balance -200 -600 Weight 54.5 kg Output: Urine 200 600 Other: Voiding Method Indwelling Catheter Indwelling Catheter Bedpan Diaper # Bowel Movements 1 - Labs CBC & Chem 7: 10/12/24 05:54 10/12/24 05:54 Labs: Abnormal Lab Results - Last 24 Hours (Table) 10/12/24 10/13/24 Range/Units 16:28 06:27 POC Glucose (mg/dL) 130 H 124 H (70-110) mg/dL
--- NOTE | 2024-10-13 20:19 | CONS ---
CONSULTATION CHIEF COMPLAINT: Elevated troponin. HISTORY OF PRESENT ILLNESS: Dulce is an 84-year-old lady with history of dementia, hypertension, who comes into the hospital having had a fall and it is unclear if she had loss of consciousness or not. We have been consulted because of mild troponin elevation. Her troponins are flat at 0.06, 0.05, and 0.03. EKG revealed sinus rhythm with right bundle-branch block. CT scan of the chest was negative for pulmonary embolism. PAST MEDICAL HISTORY: Significant for dementia, hypertension, and dyslipidemia. MEDICATIONS: As charted. ALLERGIES: As charted. FAMILY HISTORY: Negative for premature coronary artery disease. SOCIAL HISTORY: Negative for smoking. There is no history of ETOH abuse or drug abuse. REVIEW OF SYSTEMS: Unable to obtain from the patient because of the altered mental status. PHYSICAL EXAMINATION: VITAL SIGNS: Heart rate is 100 beats per minute. Blood pressure is 112/60, respiratory rate is 18, O2 saturation is 95%. NECK: There is no jugular venous distention. Carotid upstroke is normal. There is no bruit. CHEST: Reveals good air entry bilaterally. HEART: Reveals first and second heart sounds. No gallop. EXTREMITIES: Did not reveal any edema. Peripheral pulses are felt. ASSESSMENT: 1. Elevated troponin. 2. Abnormal EKG. 3. History of fall. The patient is a poor historian. We are unable to make any meaningful evaluation of the patient as she is confused and combative. She is on ventilator and had blood drawn. CT scan of the chest had lot of motion artifact, and there was a question of whether there was a dissection in the aorta. In any event, I believe the patient is not a candidate for any further evaluation at this time. Continue with the current measures. If the patient permits, we may get an echo on her tomorrow. MMODL / IJN: [id number] /
--- NOTE | 2024-10-14 10:29 | P.DS ---
Providers Date of admission: 10/11/24 04:24 Expected date of discharge: 10/14/24 Attending physician: Yusuf Faith Consults: 10/11/24 09:41 Consult Physician Routine Consulting Provider: Ian Mckeon Consult Reason/Comments: elevated troponin Do you want consulting provider notified?: Yes Primary care physician: Cheryl Hernandez, DO Hospital Course: Discharge diagnoses; #Failure to thrive, BMI 14.3 #Starvation ketosis #Mildly elevated troponin #Elevated D-dimer, rule out PE #Fall #Leukocytosis #Generalized abdominal pain #Urinary retention # Hypokalemia, resolved Hospital course; Patient is an 84-year-old female with dementia, hypertension who presents after fall. Patient is somnolent and not able to provide history. It is reported that she had unseen fall unknown LOC and unknown downtime. She is coming from [facility]. She was noted to have laceration on back right side head. In ER she received single dose of Ativan. Labs done in the ER significant for WBC 11.7, sodium 134, potassium 2.6, glucose 97, troponin 0.060, proBNP 1020, UA positive for ketones otherwise negative EKG done in the ER independently interpreted showed heart rate of 87, no ST segment elevation or depression seen, no T-wave inversions seen. Chest x-ray done independently interpreted in the ER showed no acute process CT head/neck done independently interpreted showed no acute intracranial process. Pelvic x-ray done independently interpreted showed no fracture or dislocation During patient stay she was treated for fall and leukocytosis and urinary retention. Patient with failure to thrive, spoke with her during stay who agreed to continue with hospice care. Patient is discharged to hospice. Home medications discontinued other than therapeutic eyedrops and tramadol. REVIEW OF SYSTEMS: Review of system cannot be obtained as patient is lethargic PHYSICAL EXAMINATION: GENERAL: The patient is lethargic, chronically ill looking, frail looking HEENT: Pupils are round and equally reacting to light. EOMI. No scleral icterus. No conjunctival pallor. Normocephalic, atraumatic. No pharyngeal erythema. No thyromegaly. CARDIOVASCULAR: S1 and S2 present. No murmurs, rubs, or gallops. PULMONARY: Chest is clear to auscultation, no wheezing or crackles. ABDOMEN: Soft, nontender, nondistended, normoactive bowel sounds. No palpable organomegaly. MUSCULOSKELETAL: No joint swelling or deformity. EXTREMITIES: No cyanosis, clubbing, or pedal edema. NEUROLOGICAL: Lethargic, moving all extremities SKIN: No rashes. Dictation was produced using [employer] dictation software. please excuse any grammatical, word or spelling errors. Attestation I have seen and examined this patient with my resident , discussed the same with the resident/ELIZBAETH, and agree with the dictator's assessment and plan as written Dr. Mulugeta bernal Patient Condition at Discharge: Poor Plan - Discharge Summary Discharge Rx Participant: No New Discharge Prescriptions: New MORPHINE ORAL GABBI CONC 20mg/mL [Roxanol Oral Soln Conc 20MG/ML] 10 mg PO Q4H PRN 3 Days #9 ml PRN Reason: Pain Continue traMADol HCl [Ultram] 50 mg PO Q6H PRN PRN Reason: Pain Brimonidine Tartrate/Timolol [Brimonidine-Timolol 0.2%-0.5%] 1 drop BOTH EYES BID Latanoprost [Latanoprost 0.005%] 1 drop BOTH EYES HS Discontinued Poviidone-Iodine Ophth 1 drop BOTH EYES Q8H PRN PRN Reason: irritation Naloxone HCl [Narcan] 4 mg NASAL DIRECTED PRN PRN Reason: suspected overdose Narcan 0.4mg/Ml 0.4 mg IM DIRECTED PRN PRN Reason: SUSPECTED OVERDOSE Lactulose Encephalopathy Soln 20 gm PO Q12H PRN PRN Reason: Constipation Psyllium Husk (with Sugar) [Metamucil Powder] 1 tbsp PO TID-W/MEALS Sennosides [Senokot] 8.6 mg PO BID Healthshake 1 can PO TID-W/MEALS acetaZOLAMIDE [Diamox Sequels] 500 mg PO BID@0700,1900 Thiamine [Vitamin B-1] 100 mg PO DAILY Simvastatin [Zocor] 20 mg PO HS Aspirin 81 mg PO DAILY Acetaminophen Tab [Tylenol] 650 mg PO Q4H PRN PRN Reason: Mild Pain (Scale 1 To 3) bisacodyL 10 mg RECTAL DAILY PRN PRN Reason: Constipation Folic Acid 0.8 mg PO DAILY amLODIPine [Norvasc] 2.5 mg PO DAILY Eye-Vites 1 tab PO DAILY Discharge Medication List Brimonidine Tartrate/Timolol [Brimonidine-Timolol 0.2%-0.5%] 1 drop BOTH EYES BID 10/11/24 [History] Latanoprost [Latanoprost 0.005%] 1 drop BOTH EYES HS 10/11/24 [History] traMADol HCl [Ultram] 50 mg PO Q6H PRN 10/11/24 [History] MORPHINE ORAL GABBI CONC 20mg/mL [Roxanol Oral Soln Conc 20MG/ML] 10 mg PO Q4H PRN 3 Days #9 ml 10/14/24 [Rx] Follow up Appointment(s)/Referral(s): Cheryl Hernandez DO [Primary Care Provider] - 1-2 days Discharge Disposition: DISCH TO [facility]
[2024-10-14 11:42] LABS: Glucose,Whole Blood 125 mg/dL (70-110)
[2024-10-14 12:30] VITALS: BP 124/71; PULSE 83; RESP 20; TEMP 98.1
[2024-10-14] MEDS ORDERED: MORPHINE CONC SOLN 10mg/0.5mL ORAL SYRG MISCELLANE PRN (13:37)
[2024-10-14 13:54] VITALS: BMI 18.8
--- NOTE | 2024-10-14 22:01 | PN ---
PROGRESS NOTE SUBJECTIVE: Dulce is an 84-year-old lady with history of dementia and hypertension, who came to hospital because of recurrent falls at home and we were consulted because of mild elevation in troponin. This morning, she is her usual self, confused and combative, and is currently thinking of making her into comfort care. PHYSICAL EXAMINATION: VITAL SIGNS: This morning, heart rate is 86 beats per minute, blood pressure is 123/78, and respiratory rate is 18. Rest of her exam is unchanged. ASSESSMENT: 1. Elevated troponin. 2. History of fall. 3. Confusion and dementia. PLAN: No further workup. MMODL / IJN: [id number] /
== END 2024-10-14 14:10 | disposition hospice, inpatient (51) | DRG 641 ==
LOC: EC 00:14 → 3SCARD 04:24 → 4SSUR 10-12 18:28
PROVIDERS: ADMIT Hospitalist; ATTEND Hospitalist
DX: E87.6 Hypokalemia (principal); Z68.1 Body mass index [BMI] 19.9 or less, adult; R62.7 Adult failure to thrive; E88.89 Other specified metabolic disorders; R79.89 Other specified abnormal findings of blood chemistry; R33.9 Retention of urine, unspecified; F03.90 Unspecified dementia, unspecified severity, without behavioral disturbance, psychotic disturbance, mood disturbance, and anxiety; I10 Essential (primary) hypertension; S01.81XA Laceration without foreign body of other part of head, initial encounter; E78.5 Hyperlipidemia, unspecified; D72.829 Elevated white blood cell count, unspecified; W18.30XA Fall on same level, unspecified, initial encounter; Z79.899 Other long term (current) drug therapy
CPT/HCPCS: 36415; 70450; 71045; 71275; 72125; 72170; 80053; 81003; 82550; 83735; 83880; 84100; 84484; 85025; 85379; 85610; 85730; 93005; 96361; 96365; 96366; 96375; 99285